=== PATIENT | female | born 1960 | race Caucasian/White ===

== ENCOUNTER 2018-03-17 20:31 | Emergency (ER) | payer SELFPAY ==
[2018-03-17 20:46] VITALS: BP 117/73; PULSE 89; TEMP 97.6; BMI 34.8
--- NOTE | 2018-03-17 21:06 | PDOC ---
History of Present Illness - General History Source: Patient Exam Limitations: No Limitations - History of Present Illness Initial Comments: 03/17/18 23:06 The patient is a 57 year old female brought via EMS and presenting with family, with a significant past medical history of, who presents to the ED with alcohol intoxication, nausea and vomiting today. The family notes that the patient has been drinking vodka for the past 5 days and has not been eating / drinking or sleeping well during this time frame. They note that the patient did fall out of bed, which was unwitnessed and they decided to call the ambulance because she was not responding to verbal / physical stimuli. The family notes that a few times a year the patient does binge on alcohol, so this is not something new for them. The family notes that the patient has vomited roughly 7 times today, nonbilious and nonbloody. The patient denies chest pain, shortness of breath, headache and dizziness. Denies fever, chills, diarrhea or constipation. Denies dysuria, frequency, urgency and hematuria. Allergies: None Past surgical history: None reported Social History: Alcohol use. <Santiago Canales - Last Filed: 03/17/18 23:06> <Janet Bui - Last Filed: 03/18/18 02:17> - General Chief Complaint: Alcohol intoxication Stated Complaint: INTOX Time Seen by Provider: 03/17/18 20:42 Past History <Santiago Canales - Last Filed: 03/17/18 23:06> - Past Medical History COPD: No - Suicide/Smoking/Psychosocial Hx Smoking Status: No Smoking History: Never smoked Number of Cigarettes Smoked Daily: 0 Substance Use Type: Alcohol <Janet Bui - Last Filed: 03/18/18 02:17> - Past Medical History Allergies/Adverse Reactions: Allergies Allergy/AdvReac Type Severity Reaction Status Date / Time No Known Allergies Allergy Verified 06/19/11 11:16 Home Medications: Ambulatory Orders Methylprednisolone [Medrol] 4 mg PO DAILY #1 tab.ds.pk 06/19/11 Ondansetron [Zofran Odt -] 4 mg SL BID PRN #10 od.tablet 03/18/18 Review of Systems - Review of Systems Able to Perform ROS?: Yes Comments:: 03/17/18 23:06 GENERAL/CONSTITUTIONAL: No fever or chills. No weakness. HEAD, EYES, EARS, NOSE AND THROAT: No change in vision. No ear pain or discharge. No sore throat. GASTROINTESTINAL: (+) Nausea and vomiting. No diarrhea or constipation. GENITOURINARY: No dysuria, frequency, or change in urination. CARDIOVASCULAR: No chest pain or shortness of breath. RESPIRATORY: No cough, wheezing, or hemoptysis. MUSCULOSKELETAL: No joint or muscle swelling or pain. No neck or back pain. SKIN: No rash NEUROLOGIC: No headache, vertigo, loss of consciousness, or change in strength/ sensation. ENDOCRINE: No increased thirst. No abnormal weight change. HEMATOLOGIC/LYMPHATIC: No anemia, easy bleeding, or history of blood clots. ALLERGIC/IMMUNOLOGIC: No hives or skin allergy. <Santiago Canales - Last Filed: 03/17/18 23:06> *Physical Exam - Vital Signs Last Vital Signs Temp Pulse Resp BP Pulse Ox 97.6 F 89 16 117/73 96 03/17/18 20:34 03/17/18 20:34 03/17/18 20:34 03/17/18 20:34 03/17/18 20:34 - Physical Exam Comments: 03/17/18 23:06 Constitutional: Awake, alert, oriented. No acute distress. Head: Normocephalic. Atraumatic Eyes: PERRL. EOMI. Conjunctivae are not pale. ENT: Mucous membranes are moist and intact. Posterior pharynx without exudates or erythema. Uvula midline. Neck: Supple. Full ROM. No lymphadenopathy. Cardiovascular: Regular rate. Regular rhythm. S1, S2 regular. Distal pulses are 2+ and symmetric. Pulmonary/Chest: No evidence of respiratory distress. Clear to auscultation bilaterally No wheezing, rales or rhonchi. Abdominal: Soft and non-distended. There is no tenderness. No rebound, guarding or rigidity. No organomegaly. No palpable masses. Good bowel sounds. Back: No CVA tenderness. Musculoskeletal: No edema. No cyanosis. No clubbing. Full range of motion in all extremities. Nocalf tenderness. Radial/pedal pulses are intact and 2+ bilaterally Skin: Skin is warm and dry. No petechiae. No purpura. Neurological: Alert and oriented to person, place, and time. Cranial nerves II -XII are grossly intact. Normal speech. Strength is grossly symmetric. No sensory deficits. Psychiatric: Good eye contact. Normal interaction, affect and behavior. <Santiago Canales - Last Filed: 03/17/18 23:06> - Vital Signs Last Vital Signs Temp Pulse Resp BP Pulse Ox 97.6 F 89 16 117/73 96 03/17/18 20:34 03/17/18 20:34 03/17/18 20:34 03/17/18 20:34 03/17/18 20:34 <Janet Bui - Last Filed: 03/18/18 02:17> ED Treatment Course - LABORATORY CBC & Chemistry Diagram: 03/17/18 22:17 03/17/18 22:17 - ADDITIONAL ORDERS Additional order review: Laboratory Results 03/17/18 03/17/18 22:17 22:17 Sodium 135 L Potassium 4.0 Chloride 104 Carbon Dioxide 21 L Anion Gap 10 BUN 20 H Creatinine 0.6 Creat Clearance w eGFR > 60 Random Glucose 152 H Calcium 8.0 L Total Bilirubin 0.7 AST 186 H ALT 204 H Alkaline Phosphatase 59 Total Protein 6.8 Albumin 3.4 L Alcohol, Quantitative 248.8 H 03/17/18 22:17 RBC 4.96 MCV 93.4 MCHC 33.4 RDW 13.4 MPV 8.2 Neutrophils % No Result Required. Lymphocytes % No Result Required. <Santiago Canales - Last Filed: 03/17/18 23:06> - LABORATORY CBC & Chemistry Diagram: 03/17/18 22:17 03/17/18 22:17 <Janet Bui - Last Filed: 03/18/18 02:17> Medical Decision Making - Medical Decision Making Documentation has been prepared under my direction and personally reviewed by me in its entirety. I attest that this documented accurately reflects all work, treatment, procedures and medical decision making performed by me. As noted above, this 57-year-old woman was brought in by ambulance, called by her children when she rolled off a bed and subsequently had decreased response. Of note, the patient has been binge drinking alcohol(vodka) for several days straight. The patient apparently (according to family members) has occasional binge drinking weeks such as this. Exam as noted is essentially negative. Because of her intoxication, noncontrast head CT performed to evaluate for injury. Noncontrast head CT is negative for fractures/contusion. CBC/chemistry profile sent while patient received 1 L normal saline IV hydration. Laboratory evaluation suggestive of mild hemoconcentration with H/H of 15.5/46; also BUN is 20 with a creatinine 0.6, suggestive of mild dehydration. AST is 186 with ALT of 204. Otherwise, no significant abnormality seen. Lipase is not elevated at 275. Patient received Zofran ODT 4 mg for persistent nausea. Patient had persistent nausea despite this. She is given 50 mg Tigan IM. After this, she reported relief of her nausea and abdominal discomfort. She should return to the ER at any time if she has severe pain. <Janet Bui - Last Filed: 03/18/18 02:17> *DC/Admit/Observation/Transfer - Attestations Scribe Attestion: 03/17/18 23:07 Documentation prepared by Santiago Canales, acting as medical laboratory scientist for Janet Bui MD <Santiago Canales - Last Filed: 03/17/18 23:06> <Janet Bui - Last Filed: 03/18/18 02:17> Diagnosis at time of Disposition: Alcohol intoxication Qualifiers: Complication of substance-induced condition: uncomplicated Qualified Code(s): F10.920 - Alcohol use, unspecified with intoxication, uncomplicated Gastritis, alcoholic Qualifiers: Chronicity: acute Gastritis bleeding: without bleeding Qualified Code(s): K29.20 - Alcoholic gastritis without bleeding - Discharge Dispostion Disposition: HOME Condition at time of disposition: Stable - Prescriptions Prescriptions: Ondansetron [Zofran Odt -] 4 mg SL BID PRN #10 od.tablet PRN Reason: Nausea - Patient Instructions Printed Discharge Instructions: DI for Alcohol Abuse Additional Instructions: Rest; fluids as tolerated Zofran ODT 4mg as needed for nausea Avoid excessive alcohol intake Eat regular meals and consider taking a multivitamin supplement Return to ER if you have persistent nausea/vomiting or you develop abdominal pain/severe headache Follow-up with your general medical doctor within the next 2 days
[2018-03-17 22:30] LABS: HEMATOCRIT 46.3 % (32.4-45.2); HEMOGLOBIN 15.5 GM/dl (10.7-15.3); MCH 31.2 pg (25.7-33.7); MCHC 33.4 g/dl (32.0-36.0); MEAN CELL VOLUME 93.4 fl (80-96); MEAN PLT VOLUME 8.2 fl (7.5-11.1); PLATELET COUNT 269 K/MM3 (134-434); RBC 4.96 M/mm3 (3.60-5.2); RDW 13.4 % (11.6-15.6); WHITE BLOOD COUNT 9.6 K/mm3 (4.0-10.8)
[2018-03-17 22:42] LABS: ALBUMIN 3.4 g/dl (3.5-5.0); ALK PHOS 59 U/L (32-92); ANION GAP 10 MMOL/L (8-16); BILIRUBIN,TOTAL 0.7 mg/dl (0.2-1.0); BLOOD UREA NITROGEN 20 mg/dl (7-18); CHLORIDE 104 mmol/L (98-107); CO2 21 mmol/L (22-28); CREATININE 0.6 mg/dl (0.6-1.3); GLUCOSE,RANDOM 152 mg/dl (74-106); SGOT/AST 186 U/L (10-42); SGPT/ALT 204 U/L (10-40); SODIUM 135 mmol/L (136-145); TOT PROT 6.8 g/dl (6.4-8.3)
[2018-03-17 23:04] LABS: PLATELET ESTIMATE ADEQUATE
[2018-03-18] MEDS ORDERED: ONDANSETRON 4 MG/2 ML VIAL IVPUSH ONE (00:13)
[2018-03-18] MEDS ORDERED: ONDANSETRON 4 MG/2 ML VIAL ONE (00:14)
[2018-03-18] MEDS ORDERED: TRIMETHOBENZAMIDE HCL 200MG/2ML INJ IM ONE ×2 (00:37)
== END 2018-03-18 00:43 | disposition home or self-care (01) ==
LOC: FER 20:31
PROC: 3E023GC Introduction of Other Therapeutic Substance into Muscle, Percutaneous Approach (ICD-10-PCS; principal; 2018-03-17)
PROC: 3E033GC Introduction of Other Therapeutic Substance into Peripheral Vein, Percutaneous Approach (ICD-10-PCS; 2018-03-17)
DX: F10.920 Alcohol use, unspecified with intoxication, uncomplicated (principal); K29.20 Alcoholic gastritis without bleeding
CPT/HCPCS: 36415; 70450-TC; 80053; 80307; 83690; 85025; 99282-25